=== PATIENT | male | born 1940 | race Caucasian/White ===

== ENCOUNTER 2022-07-06 08:35 | Outpatient (CLI) | payer MEDICARE, SELFPAY | END 2022-07-06 08:36 | disposition home or self-care (01) | LOC: NFLDREF 15:12 | PROVIDERS: PCP Family Medicine; Referring Provider Family Medicine; Visit Provider Family Medicine | DX: Z00.00 Encounter for general adult medical examination without abnormal findings (principal); R97.20 Elevated prostate specific antigen [PSA]; M25.562 Pain in left knee; I38 Endocarditis, valve unspecified; Z12.5 Encounter for screening for malignant neoplasm of prostate; Z13.6 Encounter for screening for cardiovascular disorders | CPT/HCPCS: 80048; 80061; 84153 ==

== ENCOUNTER 2023-01-29 08:43 | Outpatient (CLI) | payer MEDICARE, SELFPAY | END 2023-01-29 08:44 | disposition home or self-care (01) | LOC: RAD 08:44 | PROVIDERS: PCP Family Medicine; Visit Provider Family Medicine | DX: I07.1 Rheumatic tricuspid insufficiency (principal); R01.1 Cardiac murmur, unspecified; I34.0 Nonrheumatic mitral (valve) insufficiency | CPT/HCPCS: 93306 ==

== ENCOUNTER 2023-08-13 15:09 | Outpatient (CLI) | payer MEDICARE, SELFPAY ==
--- OUTSIDE RECORDS SUMMARY | 2023-08-13 15:13 | XMS_ITS | Encounter Summary ---
Author Name Unknown Organization [facility] Address [address] [place] [address] Care Team Providers Care Behavioral Health Care Manager Name Role Phone Jacki Nj APRN, C.N.P. Primary Care Provider Reason for Referral * Outpatient (Routine) - Authorized Specialty Diagnoses / Procedures Referred By Ladarius boss Referred To Contact Jacki Nj APRN, C.N.P. [address] [place] [address] [facility] Region Referral ID Status Reason Start Date Expiration Date V isits Requested Visits Authorized [id number] Authorized 05/11/2023 11/09/2024 1 1 Scheduling Instructions Nurse AWV Do not schedule prior to due date to ensure insurance coverage Visit: Medicare Annual Wellness Never done. HER ALGORITHM SCIENTIST * Outpatient (Routine) - Authorized Specialty Diagnoses / Procedures Referred By Ladarius boss Referred To Contact [facility] Internal Medicine Jacki Nj APRN, C.N.P. [address] [place] [address] [facility] Region Referral ID Status Reason Start Date Expiration Date V isits Requested Visits Authorized [id number] Authorized 05/11/2023 11/09/2024 1 1 Scheduling Instructions Medicare annual provider visit/HCC gaps Do not schedule prior to due date to ensure insurance coverage Visit: Medicare Annual Wellness Never done. HER ALGORITHM SCIENTIST Encounter Details Date Type Department Care Team (Late st Contact Info) Description 05/11/[address] [facility] Jacki Nj APRN, C.N.P. [address] [place] [phone] Social History Tobacco Use Types Packs/Day Years Used Date Smoking Tobacco: Never Nutrition Answer Date Recorded Nutrition: EVOO Fat Source Unknown 05/28 Nutrition: Servings of Fruits/Vegetables per Day Not on file 05/28/2020 Dental Answer Date Recorded Dental: Regular Dentist Unknown 05/28/19 Sex and Gender Information Value Date Recorded Sex Assigned at Not on file Gender Identity Not on file Sexual Orientation Not on file documented as of this encounter Plan of Treatment Scheduled Referrals Name Type Priority Associated Diagnoses Orde r Schedule Community Internal Medicine office visit (clinic) Outpatient Referral Routine Expected: 06/08/2023, Expires: 11/07/2023 Primary Care nurse visit (clinic) - [facility]; Medicare Annual Wellness Outpatient Referral Routine Expected: 06/08/2023, Expires: 11/07/2023 documented as of this encounter Visit Diagnoses Not on filedocumented in this encounter Care Teams Behavioral Health Care Manager Relationship Specialty Start Date End Date Jacki Nj APRN, C.N.P. [address] [facility] [place] [phone] PCP - General Family Medicine 09/23/17 documented as of this encounter
--- OUTSIDE RECORDS SUMMARY | 2023-08-13 15:13 | XMS_ITS ---
Author Name Unknown Organization [facility] Address [address] [place] [address] Care Team Providers Care Dispensing Audiologist Name Role Phone Unavailable Unavailable Unavailable Surgery Details Not on file Complications Check Surgery Details section. Procedure Estimated Blood Loss Check Surgery Details section. Procedure Findings Check Surgery Details section. Procedure Specimens Taken Check Surgery Details section.
--- OUTSIDE RECORDS SUMMARY | 2023-08-13 15:13 | XMS_ITS | Clinical Summary ---
Author Name Unknown Organization [facility] Address [address] [place] [address] Care Team Providers Care Practice Performance Manager Name Role Phone Jacki Nj APRN, C.NSalty Primary Care Provider Source Comments Patient records contain information from all sites at [facility]. For routine questions regarding patient records, call [phone] during business hours, M-F 8:00 AM - 5:00 PM Central Time. Record requests for emergency care only can be directed to [phone] at any time.[facility] Allergies No known active allergies Medications Medication Sig Dispensed Refills Start Date End Date Status aspirin [address] tablet Take 81 mg by mouth daily. Active amoxicillin (AMOXIL) 500 mg capsule Take by mouth See Admin Instructions. 02/21/2015 Active Immunizations Name Administration Dates Next Due HZV (ZOSTAVAX) 04/03/2015,04/03/2015 HepA / HepB 11/19/2005,06/18/2005,05/21/2005 PCV13 05/04/2017 PPSV23 10/04/2015,05/21/2005 Td Preservative Free (TENIVAC, DECAVAC) 10/18/19 04 Tdap 02/17/2013 Family History Medical History Relation Name Comments Prostate cancer Brother Hypertension Father Prostate cancer Father Cataracts Mother Hypertension Mother Relation Name Status Comments Brother Father Mother Social History Tobacco Use Types Packs/Day Years Used Date Smoking Tobacco: Never Nutrition Answer Date Recorded Nutrition: EVOO Fat Source Unknown 05/28 Nutrition: Servings of Fruits/Vegetables per Day Not on file 05/28/2020 Dental Answer Date Recorded Dental: Regular Dentist Unknown 05/28/19 21 Sex and Gender Information Value Date Recorded Sex Assigned at Not on file Gender Identity Not on file Sexual Orientation Not on file Last Filed Vital Signs Vital Sign Reading Time Taken Comments Blood Pressure 120/68 06/06/2015 8:55 AM BUSINESS ANALYTICS DIRECTOR Pulse 68 06/06/2015 8:55 AM BUSINESS ANALYTICS DIRECTOR Temperature - - Respiratory Rate 16 06/06/2015 8:55 AM BUSINESS ANALYTICS DIRECTOR Oxygen Saturation - - Inhaled Oxygen Concentration - - Weight 73 kg (160 lb 15 oz) 06/06/2015 8:[address] Height 177 cm (5' 9.69) 02/21/2015 8:04 AM BUSINESS ANALYTICS DIRECTOR Body Mass Index 23.3 02/21/2015 8:04 AM BUSINESS ANALYTICS DIRECTOR Plan of Treatment Health Maintenance Due Date Last Done Comments Visit: Annual, age 65+ (or M edicare and <65) 1940 Visit: Medicare Annual Wellness 1940 Zoster Vaccines (2 of 3) 05/29/2015 04/03/2015, 03/07 COVID-19 Vaccine ( - season) 2022 Influenza Vaccine (#1) 2023 DTaP,Tdap,and Td Vaccines (2 - Td or Tdap) 02/17/2023 02/17/2013, 10/18/2003 Depression Screening (Annual PHQ-2) 04/05/2023 Fall Risk Screen (Annual) 04/05/2023 Hepatitis A Vaccines Completed 11/19/2005, 06/18/2005, 05/21/2005 Pneumococcal vaccine (65+ years) Completed 05/04/2017, 10/04/2015, 05/21/2005 Care Teams Practice Performance Manager Relationship Specialty Start Date End Date Jacki Nj APRN, C.N.P. [address] [facility] [address] [place] [phone] PCP - General Family Medicine 09/23/17
--- OUTSIDE RECORDS SUMMARY | 2023-08-13 15:13 | XMS_ITS | Clinical Summary ---
Author Name Unknown Organization [facility] Address [place], [place] [address] Care Team Providers Care Note Specialist Name Role Phone Ugo Iraheta MD Primary Care Provider [phone] Allergies No known active allergies Medications Medication Sig Dispensed Refills Start Date End Date Status amoxicillin (AMOXIL) 500 mg tabletIndications:P ROPHYLAXIS Take 2,000 mg by mouth one time. Indications: PROPHYLAXIS Active aspirin (ECOTRIN) 81 mg enteric coated tabletIndications:P rostate CA (HC) Take 1 Tablet (81 mg) by mouth once daily with a meal. Ok to restart taking 5 days after surgery. 0 01/08/2023 Active oxyCODONE (ROXICODONE) 5 mg immediate release tabletIndications:P rostate CA (HC) Take 1 Tablet (5 mg) by mouth every 6 hours if needed for Pain. 10 Tablet 01/09/2023 Active Active Problems No known active problems Immunizations Name Administration Dates Next Due Pneumococcal Poly,23-Valent (Pneumovax) 05/21/19 06 Tdap 02/17/2013 Social History Tobacco Use Types Packs/Day Years Used Date Smoking Tobacco: Never Alcohol Use Standard Drinks/Week Comments Yes 0 (1 standard drink = 0.6 oz pur e alcohol) 5 glasses of wine per week Sex and Gender Information Value Date Recorded Sex Assigned at Not on file Gender Identity Not on file Sexual Orientation Not on file Obstetrics History Last Filed Vital Signs Vital Sign Reading Time Taken Comments Blood Pressure 109/53 01/09/2023 8:00 AM CDT Pulse 77 01/09/2023 8:00 AM CDT Temperature 37.2 ??C (98.9 ??F) 01/09/2023 8:00 AM CD T Respiratory Rate 16 01/09/2023 8:00 AM CDT Oxygen Saturation 94% 01/09/2023 8:00 AM CDT Inhaled Oxygen Concentration - - Weight 62.9 kg (138 lb 11.2 oz) 01/09/2023 5:30 AM CDT Height 177.8 cm (5' 10) 01/08/2023 8:45 AM CDT Body Mass Index 19.9 01/08/2023 8:45 AM CDT Plan of Treatment Health Maintenance Due Date Last Done Comments Depression screening for age 12+ 1954 BMI (ht and wt on same day) for age 18+ 1960 Zoster (shingles) series for age 50+ (1 of 2) 06/23/18 93 Pneumococcal series for age 65+ (2 of 2 - PCV) 008 05/21/2005 COVID-19 vaccine series (2022- season) Tetanus booster 02/17/2023 02/17/2013 Influenza for age 65+ 12/05/2023 Tdap Completed 02/17/2013 Advance Directives Documents on File Type Date Recorded Patient E Learning Designer Expl anation Power of Legal Support Manager 10/28/1999 10/28/1999 * Full Code (Latest Code Status on File) Date Activated Date Inactivated Comments 01/08/2023 8:28 AM 01/09/2023 4:38 PM Question Answer Comments Code Status Discussion: Unable to Assess Preferences, Provider to review later * Full Code Date Activated Date Inactivated Comments 10/11/2013 7:26 AM 10/11/2013 9:21 AM Care Teams Note Specialist Relationship Specialty Start Date End Date Ugo Iraheta MD [address] [place] [address] PCP - General Family Practice 10/04/13
--- OUTSIDE RECORDS SUMMARY | 2023-08-13 15:13 | XMS_ITS | Referral Summary ---
Author Name Unknown Organization [facility] Address [address] [place] [address] Care Team Providers Care Automotive Quality Manager Name Role Phone Jacki Nj APRN, C.NSalty Primary Care Provider Source Comments Patient records contain information from all sites at [facility]. For routine questions regarding patient records, call [phone] during business hours, M-F 8:00 AM - 5:00 PM Central Time. Record requests for emergency care only can be directed to [phone] at any time.[facility] Allergies No known active allergies Medications [...] Free (TENIVAC, DECAVAC) 10/18/19 04 Tdap 02/17/2013 Social History Tobacco Use Types [...] Comments Blood Pressure 120/68 06/06/2015 8:55 AM HUMAN RESOURCES TRAINER Pulse 68 06/06/2015 8:55 AM HUMAN RESOURCES TRAINER Temperature - - Respiratory Rate 16 06/06/2015 8:55 AM HUMAN RESOURCES TRAINER Oxygen Saturation - - Inhaled Oxygen Concentration - - Weight 73 kg (160 lb 15 oz) 06/06/2015 8:[address] Height 177 cm (5' 9.69) 02/21/2015 8:04 AM HUMAN RESOURCES TRAINER Body Mass Index 23.3 02/21/2015 8:04 AM HUMAN RESOURCES TRAINER Plan of Treatment Not on file Care Teams Automotive Quality Manager Relationship Specialty Start Date End Date Jacki Nj APRN, C.N.P. [address] [place] [phone] PCP - General Family Medicine 09/23/17
== END 2023-08-13 15:10 | disposition home or self-care (01) ==
PROVIDERS: PCP Family Medicine; Visit Provider Family Medicine
DX: E78.00 Pure hypercholesterolemia, unspecified (principal)
CPT/HCPCS: 80053; 80061

== ENCOUNTER 2023-09-22 07:03 | Outpatient (CLI) | payer MEDICARE, SELFPAY ==
--- OUTSIDE RECORDS SUMMARY | 2023-09-22 07:05 | XMS_ITS | Referral Summary ---
Author Organization [facility] Address [address] [place] [address] Care Team Providers Care Welfare Centre Manager Name Role Phone Jacki Nj APRN, C.N.P. Primary Care Provider Source Comments Patient records contain information from all sites at [facility]. For routine questions regarding patient records, call [phone] during business hours, M-F 8:00 AM - 5:00 PM Central Time. Record requests for emergency care only can be directed to [phone] at any time.[facility] Allergies No known active allergies Medications [...] Comments Blood Pressure 120/68 06/06/2015 8:55 AM VEGETABLE VENDOR Pulse 68 06/06/2015 8:55 AM VEGETABLE VENDOR Temperature - - Respiratory Rate 16 06/06/2015 8:55 AM VEGETABLE VENDOR Oxygen Saturation - - Inhaled Oxygen Concentration - - Weight 73 kg (160 lb 15 oz) 06/06/2015 8:[address] Height 177 cm (5' 9.69) 02/21/2015 8:04 AM VEGETABLE VENDOR Body Mass Index 23.3 02/21/2015 8:04 AM VEGETABLE VENDOR Plan of Treatment Upcoming Encounters Date Type Department Care Team (Latest Contact Info) Description 11/12/2023 9:15 AM CDT Comprehensive Visit Department of Ophthalmology in [place], [place] [address] [place] [phone] Toy Morrissey M.D. [address] [phone] Care Teams Welfare Centre Manager Relationship Specialty Start Date End Date Jacki Nj APRN, C.N.P. [address] [place] [phone] PCP - General Family Medicine 09/23/17
--- OUTSIDE RECORDS SUMMARY | 2023-09-22 07:05 | XMS_ITS | Clinical Summary ---
Author Organization [facility] Address [address] [place] [address] Care Team Providers Care Pasting Machine Offbearer Name Role Phone Jacki Nj APRN, C.N.P. Primary Care Provider Source Comments Patient records contain information from all sites at [facility]. For routine questions regarding patient records, call [phone] during business hours, M-F 8:00 AM - 5:00 PM Central Time. Record requests for emergency care only can be directed to [phone] at any time.[facility] Allergies No known active allergies Medications [...] Comments Blood Pressure 120/68 06/06/2015 8:55 AM PIZZA HUT TEAM MEMBER Pulse 68 06/06/2015 8:55 AM PIZZA HUT TEAM MEMBER Temperature - - Respiratory Rate 16 06/06/2015 8:55 AM PIZZA HUT TEAM MEMBER Oxygen Saturation - - Inhaled Oxygen Concentration - - Weight 73 kg (160 lb 15 oz) 06/06/2015 8:[address] Height 177 cm (5' 9.69) 02/21/2015 8:04 AM PIZZA HUT TEAM MEMBER Body Mass Index 23.3 02/21/2015 8:04 AM PIZZA HUT TEAM MEMBER Plan of Treatment Upcoming Encounters Date Type Department Care Team (Latest Contact Info) Description 11/12/2023 9:15 AM CDT Comprehensive Visit Department of Ophthalmology in [place], [place] [address], [place] [address] Toy Morrissey M.D. [address] [place] [address] Health Maintenance Due Date Last Done Comments Visit: Annual, age 65+ (or M edicare and <65) 1940 Visit: Medicare Annual Wellness 1940 Zoster Vaccines (2 of 3) 05/29/2015 04/03/2015, 03/07 COVID-19 Vaccine ( - 2022- season) 2022 Influenza Vaccine (#1) 2023 DTaP,Tdap,and Td Vaccines (2 - Td or Tdap) 02/17/2023 02/17/2013, 10/18/2003 Depression Screening (Annual PHQ-2) 04/05/2023 Fall Risk Screen (Annual) 04/05/2023 Hepatitis A Vaccines Completed 11/19/2005, 06/18/2005, 05/21/2005 Pneumococcal vaccine (65+ years) Completed 05/04/2017, 10/04/2015, 05/21/2005 Care Teams Pasting Machine Offbearer Relationship Specialty Start Date End Date Jacki Nj APRN, C.N.P. [address] [place] [phone] PCP - General Family Medicine 09/23/17
--- OUTSIDE RECORDS SUMMARY | 2023-09-22 07:05 | XMS_ITS | Continuity of Care Document ---
Author Organization [facility], [facility] Address [address] [place] [address] Care Team Providers Care Portable Router Operator Name Role Phone GWENDOLYN PISANO Primary Care Provider Assessment No assessment recorded. Plan of Treatment Reminders Order Date Submit Date Provider Last Modified By Organization Details Last Modified Time Details Appointments None recorded . Lab PSA, serum or plasma 024 08/11/19 [facility] [facility], [address], [place], [address], 16:57:13 Referral None recorded . Procedures None recorded . Surgeries None recorded . Imaging None recorded . Medication Orders None recorded . Patient TargetsNo targets recorded. Patient InstructionsNo instructions recorded. Reason for Referral None Reported. Results Created Date Observation Date Name Description Value Unit Range Abnormal Flag LastModifiedBy Organization Detail LastModifiedTime 08/11/19 24 08/11/2023 PSA, serum or plasm a PSA <0.04n g/ml 0-4.0 NG/mL Not Available [address], [place], [address], 08/11/2023 16:50:57 Result Notes None recorded. Problems Name Status Onset Date Resolution Date Notes Provider Name and Address Organization Details Recorded Time Malignant tumor of prostate Active 01/09/20 23 s/p RALP 01/08/23 PT2 Tony 4+3=7, -SMS -LVI PSA undetectab le. Sexuall health not an issue. Keyshawn Alcocer MD [address] [facility],[address], [place], [address], [facility] 08/11/2023 16:57:13 Problem Notes None recorded. Procedures Surgical History Date Name Laterality Status Provider Name and Address Organization Details Recorded Time 4 TRANSFERRER/blood draw completed Keyshawn Alcocer MD [address] [place] [address],[address] [place] [address], [phone], [facility] 08/11/2023 16:50:53 3 TRANSFERRER/blood draw completed Lilli shabazz, [facility] 03/31/2023 15:28:39 3 PROSTATECTOMY, LAPAROSCOPIC, ROBOTIC (SURG) [facility] 18:11:11 3 Prostate Biopsy Procedure completed Keyshawn Alcocer MD [address] [place] [address],[facility] [address], [place], [address], [facility] 09/02/2022 14:30:40 3 Rocephin/Ceftri axone completed Raegan Dos Santos [facility] [place] [facility] 09/02/2022 11:53:40 0 Colonoscopy completed Keyshawn Alcocer MD [address] [place] [address],[address], [place], [address], [facility] 07/29/2022 14:37:09 Imaging Results None recorded. Procedure Notes None recorded. Medical Equipment None Reported. Allergies No known drug allergies Medications Name Sig Start Date Stop Date Status Note LastModified by Organization Details LastModified Time amoxicillin 500 mg capsule TAKE FOUR CAPSULES BY MOUTH ONE HOUR BEFORE APPOINTME NT active Not Available Not Available No t Available valacyclovi r 1 gram tablet TAKE 1 TABLET BY MOUTH THREE TIMES DAILY FOR 7 DAYS 01/18 completed Not Available Not Available Not Available ciprofloxac in 500 mg tablet TAKE 1 TABLET BY MOUTH EVERY 12 HOURS 02/17 completed Not Available Not Available Not Available cephalexin 500 mg capsule TAKE 1 CAPSULE BY MOUTH THREE TIMES DAILY 01/18 completed Not Available Not Available Not Available oxycodone 5 mg tablet TAKE 1 TABLET BY MOUTH EVERY 6 HOURS NEEDED FOR PAIN 02/17 completed Not Available Not Available Not Available aspirin 80 mg tablet Take by oral route. active Not Available Not Available No t Available Vitals Date Recorded Body height Body mass index (BMI) Body weight Provider Name and Address Organization Details Last Updated DateTime 08/11/2023 177.8 cm 21.5 kg/m2 04087.86 g Keyshawn Alcocer MD [address] [place] [address],[address], [phone] 08/11/2023 16:49:53 Social History Question Answer Notes LastModified by Organizat ion Details LastModified Time Tobacco Smoking Status Never Smoker Keyshawn Alcocer MD [address] [place] [address],[address], [address] 07/29/2022 14:36:41 What Is Your Level Of Alcohol Consumption? Moderate Information not available 07/29/2022 How Many Times Per Week Do You Consume Alcohol? 5-7 Times Per Week Information not available 09/02/2022 What Is Your Level Of Caffeine Consumption? Heavy Information not available 07/29/2022 Race White Information no t available 09/02/2022 Ethnicity Not /Lati no Information not available 09/02/2022 Preferred Language Ugandan Information not available 09/02/2022 What Was The Date Of Your Most Recent Tobacco Screening? 08/11/2023 Information not available 08/11/2023 Sex: Male Functional Status None recorded. Mental Status None recorded. Family History Relationship Description Onset Age of this Age Resolved Age Notes Brother Family history of malignant neoplasm of prostate Brother Family history of malignant neoplasm of prostate Father Family history of malignant neoplasm of prostate Paternal Uncle Family history of diabetes mellitus Mother Family history of Hypertension Medical History Condition Response Other N High Blood Pressure N Kidney Stones N Lung Disease N Depression N GERD/Acid Reflux N Sexually Transmitted Infection N Cancer Y High Cholesterol N Diabetes N Bleeding Disorder N Heart Disease N Immunizations Vaccine Type Date Status Provider Name and Address Organization Details Recorded Time pneumococcal polysaccharide PPV23 05/21/2005 isidro shabazz [facility] 01/22/2023 11:02:17 pneumococcal polysaccharide PPV23 10/04/2015 isidro shabazz [facility] 01/22/2023 11:02:17 Tdap 02/17/2013 isidro shabazz [facility] 01/22/2023 11:02:17 Pneumococcal conjugate PCV 13 05/04/2017 completed [place] [facility] 01/22/2023 11:02:17 zoster live 04/03/2015 completed [place]A Bond[facility] 01/22/2023 11:02:17 Past Encounters Encounter ID Performer Location Encounter Start Date Encounter Closed Date Diagnosis/Indication Diagnosis SNOMED-CT Code [id number] Keyshawn Alcocer MD _[facility] [address] [place] [address] 08/11/2023 15:59:10 08/18/2023 16:57:34 Malignant tumor of prostate [id number] Health Concerns Section Related Observation LastModified by Organization Detai ls LastModified Time None Recorded Concern Status LastModified by Organization Details LastModified Time None Recorded Payers Encounter Date Sequence Insurance Name Policy Number Policy Otto Covered Member ID Otto Member ID Guarantor Name 08/11/2023 1 [place] [id number] Jeovany Medrano [id number] Jeovany Medrano Notes Date Note Type Note Provider Name and Address Organization Details Recorded Time 08/11/2023 text/html HPI Notes: Follo w up prostate cancer and is six months s/p prostatectomy. Good continence and he's active doing yard work. His PSA today was undetectable. Keyshawn Alcocer MD [address] [facility] [address], [place], [address], [facility] 08/11/2023 16:57:25
--- OUTSIDE RECORDS SUMMARY | 2023-09-22 07:05 | XMS_ITS | Clinical Summary ---
Author Organization [facility] Address [place], [place] [address] Care Team Providers Care Seedling Sorter Name Role Phone Ugo Iraheta MD Primary Care Provider [phone] Allergies No known active allergies Medications Medication [...] Documents on File Type Date Recorded Patient Geoint Analyst Expl anation Power of Customer Solutions Representative 10/28/1999 10/28/1999 * Full Code (Latest Code Status on File) Date Activated Date Inactivated Comments 01/08/2023 8:28 AM 01/09/2023 4:38 PM Question Answer Comments Code Status Discussion: Unable to Assess Preferences, Provider to review later * Full Code Date Activated Date Inactivated Comments 10/11/2013 7:26 AM 10/11/2013 9:21 AM Care Teams Seedling Sorter Relationship Specialty Start Date End Date Ugo Iraheta MD [address] [place] [address] PCP - General Family Practice 10/04/13
--- OUTSIDE RECORDS SUMMARY | 2023-09-22 07:05 | XMS_ITS ---
Author Organization [facility] Address [address] [place] [address] Care Team Providers Care Director Of Labor Relations Name Role Phone Unavailable Unavailable Unavailable Surgery Details Not on file Complications Check Surgery Details section. Procedure Estimated Blood Loss Check Surgery Details section. Procedure Findings Check Surgery Details section. Procedure Specimens Taken Check Surgery Details section.
--- NOTE | 2023-09-22 07:15 | CRLHL7_ITS ---
For Patients: As a result of the Century Cures Act, medical imaging exams and procedure reports are released immediately into your electronic medical record. You may view this report before your referring provider. If you have questions, please contact your health care provider. CLINICAL HISTORY Abdominal aortic aneurysm screening. COMPARISON None. TECHNIQUE The abdominal aorta and iliac arteries were examined with hawkins-scale ultrasound, color flow and Doppler spectral analysis. Bypass grafts and stents may be evaluated per exam specific protocol. Vessel size, peak systolic velocity (PSV) and velocity ratios if applicable, were obtained and documented at sites per exam specific protocol. FINDINGS Entire aorta visualized: Yes. AP (cm) Width (cm) Proximal aorta: 3.0 3.0 Mid aorta: 2.0 2.4 Distal aorta: 1.7 1.9 Right common iliac artery: 1.4 1.8 Left common iliac artery: 1.3 1.5 Diffuse atherosclerotic disease is seen throughout the visualized abdominal aorta. The proximal abdominal aorta is aneurysmal measuring up to 3 cm. IMPRESSION Proximal abdominal aortic aneurysm measuring 3 cm. Dano Glover M.D. [email or web address]/Dictated by: Dano Glover MD @ 09/22/2023 2:29:00 PM (Electronically Signed)
== END 2023-09-22 07:04 | disposition home or self-care (01) ==
LOC: US 07:04
PROVIDERS: PCP Family Medicine; Visit Provider Family Medicine
DX: Z13.6 Encounter for screening for cardiovascular disorders (principal); I71.40 Abdominal aortic aneurysm, without rupture, unspecified
CPT/HCPCS: 76706

== ENCOUNTER 2024-08-14 08:01 | Outpatient (CLI) | payer MEDICARE, SELFPAY | END 2024-08-14 08:02 | disposition home or self-care (01) | LOC: NFLDREF 08-19 19:37 | PROVIDERS: PCP Family Medicine; Referring Provider Family Medicine; Visit Provider Family Medicine | DX: C61 Malignant neoplasm of prostate (principal); Z13.1 Encounter for screening for diabetes mellitus; Z13.6 Encounter for screening for cardiovascular disorders | CPT/HCPCS: 80053; 80061; 84153 ==

== ENCOUNTER 2025-02-07 08:37 | Outpatient (CLI) | payer MEDICARE, SELFPAY | END 2025-02-07 08:38 | disposition home or self-care (01) | LOC: RAD 08:38 | PROVIDERS: PCP Family Medicine; Visit Provider Family Medicine | DX: I07.1 Rheumatic tricuspid insufficiency (principal) | CPT/HCPCS: 93306 ==